=== PATIENT | male | born 1980 | race Caucasian/White ===

== ENCOUNTER → 2017-06-28 | Day surgery (SDC) | payer BC ==
[~2017-06-28] MED LIST: LANTUS SUBQ; NOVOLOG100 UNIT/1 SUBQ; PERCOCET 7.5-31 EACH PO; PERCOCET PO
[2017-06-28 13:07] LABS: CALCIUM 8.8 mg/dL (8.5-10.1); CREATININE 1.2 mg/dL (0.6-1.3); POTASSIUM 4.3 mmol/L (3.5-5.1)
--- NOTE | 2017-06-28 16:37 | EKG ---
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
--- NOTE | 2017-07-12 10:57 | OP ---
[address] [address] OPERATIVE REPORT Name: JERSONAMANDA VALDEZT Room: [facility]#: [id number] Admission: 06/28/17 Attend Phys: Micheal Sin II Discharge: Date of : 84 Report #: [id number] THIS REPORT FOR: //name// CC: Yarely Sin DATE OF SERVICE: 06/28/2017 PREOPERATIVE DIAGNOSIS: Right distal radius fracture with comminution and displacement with intra-articular involvement. POSTOPERATIVE DIAGNOSIS: Right distal radius fracture with comminution and displacement with intra-articular involvement. PROCEDURE: Open reduction internal fixation of right distal radius fracture, greater than 3 parts. SURGEON: Micheal Sin II, DO COMPENSATION AND BENEFITS MANAGER: JOSIAS Akins. ANESTHESIA: Per operative record. ESTIMATED BLOOD LOSS: Minimal. ANTIBIOTICS: Per operative record. DRAINS: None. COMPLICATIONS: None. CONDITION: The patient stable to recovery room. IMPLANTS USED: [place] distal radius plate with appropriate locking and nonlocking screws. DESCRIPTION OF PROCEDURE: The patient was taken to the operative suite, placed supine on the operative table and given appropriate anesthesia. The patient right arm was sterilely prepped and draped with a well-padded tourniquet applied to the upper arm after exsanguination of the limb with Esmarch. The surgery began by a volar incision over the flexor carpi radialis tendon. This was carried down through subcutaneous tissues. The pronator was then reflected off of the radius, fracture was found and reduced in the anatomic fashion. The articular segment was reduced back to the carpal region in appropriate alignment. The plate was then affixed utilizing K wires. This was held in place, checked with C-arm in both AP and lateral direction. The plate was then [address] [address] OPERATIVE REPORT Name: ROXI TAMAYO Room: [facility]#: [id number] Admission: 06/28/17 Attend Phys: Micheal Sin II Discharge: Date of : 84 Report #: [id number] fixed with screws at the proximal and distal segments in appropriate fashion. Final images were taken with the C-arm in both the AP and lateral directions showing excellent anatomic reduction of the comminuted fracture. Final irrigation was then performed of the wrist. It was then closed utilizing a 2-0 Vicryl and a running Monocryl stitch. Dermabond and sterile dressing applied as well as a splint. The patient was transported to recovery room in stable condition. Counts were correct throughout the procedure. <ELECTRONICALLY SIGNED> By: Micheal Sin II, DO 07/12/17 1057 1106 1201Renrico Sin, II, DO /nt
== END | disposition home or self-care (01) ==
LOC: M.SUR 12:24
PROVIDERS: Orthopaedic Surgery
DX: S52.571A Other intraarticular fracture of lower end of right radius, initial encounter for closed fracture (principal); X58.XXXA Exposure to other specified factors, initial encounter; Y93.9 Activity, unspecified; Y92.89 Other specified places as the place of occurrence of the external cause; Y99.9 Unspecified external cause status; Z79.899 Other long term (current) drug therapy; Z79.891 Long term (current) use of opiate analgesic